=== PATIENT | female | born 1955 | race Caucasian/White ===

== ENCOUNTER 2017-05-19 05:11 | Day surgery (SDC) | payer OTHER ==
[2017-05-17 13:57] VITALS: BMI 19.5
--- NOTE | 2017-05-19 09:26 | HP ---
[facility] - Chief Complaint Chief Complaint: left wrist fx - Past Medical History Allergies/Adverse Reactions: Allergies Allergy/AdvReac Type Severity Reaction Status Date / Time morphine Allergy "RASH" Verified 05/17/17 13:57 - Current Medications Current Medications: Home Medications Medication Instructions Recorded Calcium Carbonate [Calcium] 500 mg PO DAILY 05/17/17 Acetaminophen [Tylenol] 650 mg PO PRN PRN 05/19/17 Satellite Physical Exam - Physical Examination Vital Signs: Vital Signs Period Temp Pulse Resp BP Sys/Elaine Pulse Ox Last 24 Hr 97.5 F 78 18 107/70 98 General Appearance: Well Nourished, Well Developed, Alert & Oriented x3 ENT: Clear Lung: Normal air movement Heart: Regular rate & rhythm Extremities: Other (left wrist- + deformity, + swelling, + ttp, decr rom, nvi xrays show displaced distal radius fx) Neurological: Intact, Alert, Oriented [facility] Impression/Plan - Impression/Plan Impression: left distal radius fx Operative Procedure: left distal radius orif Date to be Performed: 05/19/17
[2017-05-19] MEDS ORDERED: PROPOFOL 20 ML ONE (10:12)
[2017-05-19] MEDS ORDERED: ROPIVACAINE HCL 0.5% 30ML VIAL ONE (10:14)
[2017-05-19] MEDS ORDERED: DEXAMETHASONE SOD PHOSPHATE/PF 10 MG/ML SDV ONE (10:14)
[2017-05-19] MEDS ORDERED: MIDAZOLAM HCL 2 MG/2 ML SINGLE DOSE VIAL ONE ×2 (10:15)
[2017-05-19] MEDS ORDERED: ceFAZolin SODIUM 1 GM VIAL IVPB ONE (10:56)
[2017-05-19] MEDS ORDERED: ceFAZolin SODIUM 1 GM VIAL ONE ×2 (10:57)
[2017-05-19] MEDS ORDERED: ONDANSETRON 4 MG/2 ML VIAL IVPUSH PRN (11:09)
[2017-05-19] MEDS ORDERED: oxyCODONE HCL 5 MG TABLET PO PRN ×2 (11:09)
[2017-05-19] MEDS ORDERED: LACTATED RINGERS SOLUTION 1,000 ML IV SCH (11:15)
--- NOTE | 2017-05-19 12:09 | OP ---
Operative Note - Note: Operative Date: 05/19/17 ([facility]) Pre-Operative Diagnosis: left displaced distal radius fx Operation: left distal radius ORIF Post-Operative Diagnosis: Same as Pre-op Surgeon: Calvin Mena Respiratory Assistant: Ab Steele) Anesthesiologist/DIRECTOR OF GIFT PLANNING: Patrick Jackson Anesthesia: Local, MAC Estimated Blood Loss (mls): 0 (tourniquet) Operative Report Dictated: Yes
[2017-05-19 14:13] VITALS: BP 95/61; PULSE 85; TEMP 97.9
--- NOTE | 2017-05-19 17:00 | SPEC ---
DATE OF OPERATION: 05/19/2017 OPERATION: Open reduction and internal fixation of left distal radius with [employer] volar low-profile plate. PREOPERATIVE DIAGNOSIS: Comminuted intra-articular displaced left distal radius fracture. POSTOPERATIVE DIAGNOSIS: Comminuted intra-articular displaced left distal radius fracture. SURGEON: Chandan Mena MD PCTS: KAROL Lynn SECOND INVOICING MACHINE OPERATOR: Kwesi Adkins MD COMPLICATIONS: None. DRAINS: None. SPECIMENS: None. BLOOD LOSS: None. BLOOD GIVEN: None. FLUID REPLACEMENT: Was 500 mL Plasma-Lyte. INDICATIONS: This patient is a 61-year-old female with the preoperative diagnosis of a displaced, shortened, angulated, comminuted, left distal radius fracture. After understanding the potential risks, complications, alternatives and benefits of surgery versus nonsurgical treatment, the patient elected to undergo this procedure. DESCRIPTION: The patient was taken to the operating room and IV sedation was given and 1 gram of IV Ancef. LMA anesthesia was induced after a right interscalene block was performed. The entire case was done under a 3.8 loupe magnification and typical FCR approach incision was marked out with a marking pen. The right upper extremity was prepped and draped in the usual sterile fashion, elevated and exsanguinated with an Esmarch bandage and tourniquet inflated to 250 mm of mercury. A No. 15 scalpel was utilized to cut through the skin. Hemostasis was achieved with bipolar cautery. Dissection was done with Webril scissors down to the FCR tendon. Self-retaining Weitlaner retractors were placed into the wound. A fresh No. 15 scalpel was utilized to cut down through the roof of the FCR and then the floor of the FCR tendon. Using blunt dissection, I was able to get down to the pronator quadratus. Two Weitlaner retractors were placed into the wound. The FCR tendon was partially protecting the radial artery. Using a fresh No. 15 scalpel blade, I was able to cut the pronator quadratus off the distal radius in an L-shaped fashion for potential later repair. A portion of it was already torn. The No. 15 scalpel blade, as well as the periosteal elevator were utilized to take the rest of the pronator quadratus off the distal radius, exposing the fracture site. The area was manipulated. Irrigation was used and all soft tissue and hematoma debris was removed. There was some periosteum and muscle in the fracture fragment site; this was removed as well. I then did a provisional reduction, trying to piece all the pieces together. There was some mild metaphyseal bone loss from the crush of the injury. I used a standard titanium low-profile [employer] volar plate and put it on the right distal radius with the provisional reduction and held it in place with 2 K-wires. X-rays were taken in AP level multiple oblique planes and I was quite happy with the decision of the hardware. The subchondral support position, as well as the fracture reduction and fracture fragment. Then using a standard technique, first with a 2.5mm drill bit I used three 3.5mm purple screws, all 12mm in length and 5 distal partially threaded locking screws of 16 to 22mm in length. These were all partially threaded locking screws, holding all the fracture fragments for fracture specific fixation including the CHRISTINA piece and the radial styloid. X-rays were taken along the way multiple times to document subchondral support position, as well as fragment specific fixation. Overall it looked quite good and I was quite happy with the position of the wrist, bones and distal radius fracture fragments. All the guides were removed and accounted for. The area was copiously irrigated and washed out. Final x-rays were taken and closure was done. Closure was done with 0-Vicryl closing the pronator quadratus back over the plate. The 4-0 undyed Vicryl was used to close the deep dermal layer. Final skin reapproximated was done with a running subcuticular 4-0 Biosyn and then washed, dried, covered with Steri strips, 4x4 between the fingers, Webril and a volar fiberglass splint was applied, wrapped with Adrienne and Cobain. The tourniquet was taken down after a total tourniquet time of 38 minutes. There were no complications during the case. The patient tolerated the procedure well and was brought to the ambulatory recovery room in stable condition. Kwesi Adkins MD dictating for MD CHANDAN Hagan M.D. [id number]
== END 2017-05-19 14:20 | disposition home or self-care (01) ==
LOC: JASU-SURG 05:11
PROVIDERS: ATTEND Orthopaedic Surgery
PROC: 0PSJ04Z Reposition Left Radius with Internal Fixation Device, Open Approach (ICD-10-PCS; principal; 2017-05-19 10:00)
DX: S52.572A Other intraarticular fracture of lower end of left radius, initial encounter for closed fracture (principal); W19.XXXA Unspecified fall, initial encounter; Y93.9 Activity, unspecified; Y92.9 Unspecified place or not applicable; Y99.9 Unspecified external cause status
CPT/HCPCS: 73110-TC-LT; 94760